=== PATIENT | female | born 1930 | race Caucasian/White ===

== ENCOUNTER 2021-08-25 13:22 | Outpatient (CLI) | payer MEDICARE | END 2021-08-25 13:23 | disposition home or self-care (01) | LOC: CSHWCC 13:22 | PROVIDERS: ATTEND Nurse Practitioner Family | DX: S81.801A Unspecified open wound, right lower leg, initial encounter (principal); R60.0 Localized edema | CPT/HCPCS: 97139; G0463; 99213 ==

== ENCOUNTER 2021-09-02 09:34 | Outpatient (CLI) | payer MEDICARE | END 2021-09-02 09:35 | disposition home or self-care (01) | LOC: CSHWCC 09:34 | PROVIDERS: ATTEND Nurse Practitioner Family | DX: S81.801D Unspecified open wound, right lower leg, subsequent encounter (principal); S81.802D Unspecified open wound, left lower leg, subsequent encounter; S51.802D Unspecified open wound of left forearm, subsequent encounter; R60.0 Localized edema | CPT/HCPCS: 97139; G0463; 99213 ==

== ENCOUNTER 2021-09-08 09:19 | Outpatient (CLI) | payer MEDICARE | END 2021-09-08 09:20 | disposition home or self-care (01) | LOC: CSHWCC 09:19 | PROVIDERS: ATTEND Nurse Practitioner Family | DX: S81.801D Unspecified open wound, right lower leg, subsequent encounter (principal); S81.802D Unspecified open wound, left lower leg, subsequent encounter; R60.0 Localized edema | CPT/HCPCS: 97139; G0463; 99213 ==

== ENCOUNTER 2021-09-11 22:31 | Outpatient (CLI) | payer MEDICARE | END 2021-09-11 22:32 | disposition home or self-care (01) | LOC: CSHWCC 22:31 | PROVIDERS: ATTEND Nurse Practitioner Family | DX: S81.801D Unspecified open wound, right lower leg, subsequent encounter (principal); R60.0 Localized edema | CPT/HCPCS: 97139; G0463; 99213 ==

== ENCOUNTER 2021-09-23 08:40 | Outpatient (CLI) | payer MEDICARE | END 2021-09-23 08:41 | disposition home or self-care (01) | LOC: CSHWCC 08:40 | PROVIDERS: ATTEND Nurse Practitioner Family | DX: S81.801D Unspecified open wound, right lower leg, subsequent encounter (principal); R60.0 Localized edema | CPT/HCPCS: 97139; G0463; 99213 ==